=== PATIENT | female | born 1995 | race African-American/Black ===

== ENCOUNTER 2024-03-08 13:58 | Emergency (ER) | payer OTHER ==
[2024-03-08 14:30] VITALS: BP 111/74; PULSE 82; RESP 17; TEMP 98.8; BMI 19.3
[2024-03-08] MEDS ORDERED: ACETAMINOPHEN 500 MG TABLET (FP) ONE (15:02)
[2024-03-08] MEDS ORDERED: KETOROLAC TROMETHAMINE 30 MG/1 ML VIAL ONE (15:02)
[2024-03-08] MEDS: KETOROLAC TROMETHAMINE 30 MG/1 ML VIAL IM ONE (15:12)
[2024-03-08] MEDS: ACETAMINOPHEN 500 MG TABLET (FP) PO ONE (15:13)
== END 2024-03-08 17:08 | disposition home or self-care (01) ==
LOC: JERFT 13:58
PROC: 3E0133Z Introduction of Anti-inflammatory into Subcutaneous Tissue, Percutaneous Approach (ICD-10-PCS; principal; 2024-03-08)
DX: J03.90 Acute tonsillitis, unspecified (principal); M79.10 Myalgia, unspecified site
CPT/HCPCS: 87651; 99284-25